=== PATIENT | female | born 1965 | race Caucasian/White ===

== ENCOUNTER 2018-03-01 13:14 | Emergency (ER) | payer BC ==
[2018-03-01 13:18] VITALS: BP 147/86
--- NOTE | 2018-03-01 13:32 | ER Document Report ---
ED Medical Screen (RME) - General Chief Complaint: Hand Pain Stated Complaint: RIGHT HAND PAIN Time Seen by Provider: 03/01/18 13:24 Mode of Arrival: Ambulatory Information source: Patient Notes: 83-year-old female presented ED for complaint of a splenic to right index finger. The splint is in the proximal palmar side of her right index finger. She went to urgent care today and they attempted to take the splinter out and were not unable to. She states that the finger started to swell and become more painful. She is alert oriented, respirations regular and unlabored, speaking in full sentences, she is in no acute distress. She does ambulate with a even steady gait. Her who is the chiropractor Dr. Blue is at the bedside with her. I have greeted and performed a rapid initial assessment of this patient. A comprehensive ED assessment and evaluation of the patient, analysis of test results and completion of medical decision making process will be conducted by an additional ED providers. Physical Exam - Vital signs Vitals: Temp Pulse Resp BP Pulse Ox 98.5 F 66 14 147/86 H 100 03/01/18 13:18 03/01/18 13:18 03/01/18 13:18 03/01/18 13:18 03/01/18 13:18 Course - Vital Signs Vital signs: Temp Pulse Resp BP Pulse Ox 98.5 F 66 14 147/86 H 100 03/01/18 13:18 03/01/18 13:18 03/01/18 13:18 03/01/18 13:18 03/01/18 13:18
[2018-03-01] MEDS ORDERED: LIDOCAINE 1% INJ-PF (10 MG/ML) 30 ML SDV INJ ONE (14:08)
[2018-03-01] MEDS ORDERED: DIPH/PERTUSS(ACELL)/TETANUS VAC/PF 0.5 ML SYR (>=10YO) IM ONE (14:09)
[2018-03-01] MEDS ORDERED: CEPHALEXIN 500 MG CAPSULE PO ONE (14:10)
[2018-03-01] MEDS ORDERED: IBUPROFEN 800 MG TABLET PO ONE (14:11)
--- NOTE | 2018-03-01 14:11 | ER Document Report ---
HPI - HPI Pain Level: 5 Context: Patient is a 53 year old female who presents to the ED complaining of splinter stuck in the proximal phalanx ventral fat pad from yesterday. She states she was able to partially remove the fibers yesterday and woke up with pain and swelling. denies any fevers, drainage, tetanus not up to date Past Medical History - General Information source: Patient - Social History Smoking Status: Never Smoker Chew tobacco use (# tins/day): No Frequency of alcohol use: None Drug Abuse: None Family History: Reviewed & Not Pertinent Patient has suicidal ideation: No Patient has homicidal ideation: No Renal/ Medical History: Denies: Hx Peritoneal Dialysis Vertical Provider Document - CONSTITUTIONAL Agree With Documented VS: Yes Notes: PHYSICAL EXAM GENERAL: Alert, interacts well. HEAD: Normocephalic, atraumatic. EXTREMITIES: Moves all 4 extremities spontaneously. No edema, radial and dorsalis pedis pulses 2/4 bilaterally. No cyanosis. NEUROLOGICAL: Alert and oriented x4. Normal speech. PSYCH: Normal affect, normal mood. SKIN: Warm, dry, normal turgor. swelling without erythema, purulent drainage and palpable fiber withi the superficial tissue of the right proximal phalanx Course - Re-evaluation Re-evalutation: 03/01/18 14:08 patient requesting us to attempt removal, site was anesthetized and superficial incision performed. Foreign body was not able to be removed due to location and deeper tissue. Patient agrees to go with conservative management of antibiotics and will follow up with hand surgery if need be. Patient given strict return precautions and stable for discharge. Tetanus updated - Vital Signs Vital signs: Temp Pulse Resp BP Pulse Ox 98.5 F 66 14 147/86 H 100 03/01/18 13:18 03/01/18 13:18 03/01/18 13:18 03/01/18 13:18 03/01/18 13:18 Procedures - Additional Procedures Fb Additional Procedures: Other - FB removal attempt, site was anesthetized with a digital block utilizing 5 cc of 1% lidocaine. The splinter was identified superficial incision was made utilizing 11 blade. The foreign body was not able to be removed. Discharge - Discharge Clinical Impression: Foreign body (FB) in soft tissue Condition: Good Disposition: HOME, SELF-CARE Instructions: Retained Subcutaneous Foreign Object ([facility]) Prescriptions: Cephalexin Monohydrate [Keflex 500 mg Capsule] 500 mg PO Q6H 5 Days capsule Referrals: RONDA CYR DO [ACTIVE STAFF] - Follow up as needed (Hand surgery)
== END 2018-03-01 15:34 | disposition home or self-care (01) ==
LOC: ER 13:14
PROC: 0H9FXZZ Drainage of Right Hand Skin, External Approach (ICD-10-PCS; principal; 2018-03-01)
DX: S60.450A Superficial foreign body of right index finger, initial encounter (principal); X58.XXXA Exposure to other specified factors, initial encounter; Z23 Encounter for immunization
CPT/HCPCS: 99283; 90471; 90715; 10120; J3490